=== PATIENT | female | born 1995 | race Hispanic/Latino ===

== ENCOUNTER → 2019-02-17 12:14 | Outpatient (ROUT) | payer OTHER, SELFPAY ==
[2019-02-17 14:23] LABS: Urine N gonorrhoeae NOT DETECTED
[2019-02-17 14:29] LABS: Urine Chlamydia NOT DETECTED
== END ==
DX: Z11.3 Encounter for screening for infections with a predominantly sexual mode of transmission (principal)
CPT/HCPCS: 87491; 87591